=== PATIENT | female | born 1985 | race Caucasian/White ===

== ENCOUNTER 2016-10-23 15:06 | Emergency (ER) | payer OTHER ==
[~2016-10-23] VITALS: Ht 175.3 cm; Wt 105.0 kg
[~2016-10-23 15:06] MED LIST: CITA40TA4 PO
[2016-10-23] MEDS ORDERED: IOHEXOL 350 MG/ML 10 ML VIAL (for RAD DIAG) IVCONTRAST ONE (15:07)
[2016-10-23 15:08] VITALS: BP 120/74; PULSE 83; RESP 17; TEMP 98.5; O2SAT 97
--- NOTE | 2016-10-23 15:14 | PD ---
Physical Exam Date Seen by Provider: Oct 23, 2016 Time Seen by Provider: 15:11 Narrative 31 YOWF C/O SPIDER BITE AND CELLULITIS TO R LOWER BACK . HAD US BY PMD AND I AND D. SENT FOR FURTHER EVAL. X 1.5 WEEKS. VS NOTED WAITING FOR BED PLACEMENT Data Data Last Documented VS Vital Signs Date Time Temp Pulse Resp B/P (MAP) Pulse Ox O2 Delivery O2 Flow Rate FiO2 10/23/16 15:08 98.5 83 17 120/74 (89) 97 MDM Medical Record Reviewed: No Supervised Visit with BRIDGET: Yes Mihir Frey Oct 23, 2016 15:14
[2016-10-23] MEDS ORDERED: BACT800T5 PO (16:11)
[2016-10-23] MEDS ORDERED: SODIUM CHLOR 0.9% 1000 ML INJ 1,000 ML IV SCH (16:16)
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
[2016-10-23] MEDS ORDERED: KETOROLAC TROMETHAMINE 30 MG/ML (IVP) VIAL IV PUSH ONE (16:30)
[2016-10-23 17:04] LABS: BASOPHIL % 0.1 % (0.0-2.0); HEMATOCRIT 40.5 % (35.0-46.0); HEMO FLAGS DIFF FINAL; LYMPH % 26.4 % (9.0-44.0); LYMPHOCYTE # 1.2 TH/MM3 (1.0-4.8); MEAN CELL VOLUME 98.2 FL (80.0-100.0); MEAN CORPUSCULAR HGB CONC 33.6 % (32.0-36.0); MONO % 8.1 % (0.0-8.0); NEUT % 64.4 % (16.0-70.0); PLATELET COUNT 252 TH/MM3 (150-450); RED BLOOD COUNT 4.12 MIL/MM3 (4.00-5.30); RED CELL DISTRIBUTION WIDTH 12.4 % (11.6-17.2); WHITE BLOOD COUNT 4.6 TH/MM3 (4.0-11.0)
[2016-10-23 17:13] LABS: BICARBONATE 27.2 MEQ/L (21.0-32.0); POTASSIUM 4.2 MEQ/L (3.5-5.1)
[2016-10-23 18:27] VITALS: BP 113/65; PULSE 71; RESP 15; O2SAT 98
--- NOTE | 2016-10-23 20:06 | RADRPT ---
EXAM DATE/TIME: 10/23/2016 18:00 [facility] COMPARISON: No previous studies available for comparison. INDICATIONS : Abscess lower back area, IV CONTRAST: 69 cc Omnipaque 350 (iohexol) IV RADIATION DOSE: 35.86 CTDIvol (mGy) MEDICAL HISTORY : Seizures. SURGICAL HISTORY : None. ENCOUNTER: Initial ACUITY: 2 weeks PAIN SCALE: 4/10 LOCATION: Lumbar TECHNIQUE: Volumetric scanning of the lumbar spine was performed. Multiplanar reconstructions in the sagittal, coronal and oblique axial planes were performed. Using automated exposure control and adjustment of the mA and/or kV according to patient size, radiation dose was kept as low as reasonably achievable t o obtain optimal diagnostic quality images. DICOM format image data is available electronically for review and comparison. FINDINGS: CONUS MEDULLARIS: Normal. PARASPINAL SOFT TISSUES: Paraspinal soft tissues are intact. There is some stranding in the subcutaneous tissues of the right upper buttocks and a para midline distribution. Findings are nonspecific and can represent a cellulit is or benign contusion. LUMBAR CORD: Normal. DURAL SAC: Normal. L1-L2: The disc, uncovertebral joints, central canal, foramina, and facets are normal. L2-L3: The disc, uncovertebral joints, central canal, foramina, and facets are normal. L3-L4: The disc, uncovertebral joints, central canal, foramina, and facets are normal. L4-L5: The disc, uncovertebral joints, central canal, foramina, and facets are normal. L5-S1: The disc, uncovertebral joints, central canal, foramina, and facets are normal. CONCLUSION: 1. Soft tissue contusion or cellulitis in the upper right buttock region. No associated abscess. 2. Osseous structures are all intact. Narayan Li MD on October 23, 2016 at 20:02 Board Certified Radiologist. This report was verified electronically.
[2016-10-23] MEDS ORDERED: DALBAVANCIN INJ 1,500 MG in DEXTROSE 5% IN WATE 500 ML INJ 500 ML IV STA ×2 (20:09)
[2016-10-23] MEDS ORDERED: ASP: Location of Dalbavancin administration OTHER ONE (20:15)
[2016-10-23] MEDS ORDERED: ASP: Only reason for admit - IV antibiotics OTHER ONE (20:15)
[2016-10-23] MEDS ORDERED: ASP: No known hypersensitivity to Vanco, Telavancin, Dalbavancin OTHER ONE (20:15)
[2016-10-23] MEDS ORDERED: ASP: Does not meet inpatient admission criteria OTHER ONE (20:15)
[2016-10-23] MEDS ORDERED: MISCELLANEOUS PHARMACY INFORMATION XX ONE (20:15)
== END 2016-10-23 21:30 | disposition home or self-care (01) ==
LOC: NEPD 15:06
DX: L03.312 Cellulitis of back [any part except buttock and flank] (principal)
CPT/HCPCS: 72132; 80048; 83605; 84703; 85025; 87040; 96361; 96365; 96375; 99285; J0875; J1885; J7030; J7060; Q9967

== ENCOUNTER 2017-03-07 00:31 | Emergency (ER) | payer SELFPAY ==
[~2017-03-07] VITALS: Ht 175.3 cm; Wt 113.9 kg
[~2017-03-07 00:31] MED LIST changes: +AUGM875T3 PO
[2017-03-07 00:33] VITALS: BP 118/63; PULSE 77; RESP 16; TEMP 99.7; O2SAT 99
[2017-03-07] MEDS ORDERED: BACT800T5 PO (01:54)
[2017-03-07] MEDS ORDERED: SULFAMETHOXAZOLE-TRIMETHOPRIM DS 800-160 MG TAB PO ONE (02:00)
[2017-03-07] MEDS ORDERED: diphenhydrAMINE HCL 50 MG CAP PO ONE (02:00)
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
[2017-03-09] MEDS ORDERED: CLIN150C14 PO (16:37)
[2017-03-09] MEDS ORDERED: IBUP1TAB7 PO (21:26)
== END 2017-03-07 02:23 | disposition home or self-care (01) ==
LOC: NEPD 00:31
DX: S60.467A Insect bite (nonvenomous) of left little finger, initial encounter (principal); S30.861A Insect bite (nonvenomous) of abdominal wall, initial encounter; W57.XXXA Bitten or stung by nonvenomous insect and other nonvenomous arthropods, initial encounter; G40.909 Epilepsy, unspecified, not intractable, without status epilepticus; E07.9 Disorder of thyroid, unspecified; F12.90 Cannabis use, unspecified, uncomplicated; F41.0 Panic disorder [episodic paroxysmal anxiety]; Z72.0 Tobacco use
CPT/HCPCS: 99283; Q0163

== ENCOUNTER 2017-03-09 18:09 | Emergency (ER) | payer SELFPAY ==
[2017-03-09] MEDS: CLINDAMYCIN 150 MG CAP PO (21:34)
[2017-03-09] MEDS: IBUPROFEN 800 MG TAB PO (21:35)
== END 2017-03-09 21:43 | disposition home or self-care (01) ==
LOC: NEPK 18:09
DX: L03.012 Cellulitis of left finger (principal)
CPT/HCPCS: 73130; 99283